=== PATIENT | female | born 1955 | race Asian ===

== ENCOUNTER 2016-10-17 20:49 | Emergency (ER) | payer OTHER ==
[2016-10-17] MEDS ORDERED: Sodium Chloride 0.9% 1,000 ML IV STA (22:17)
[2016-10-17] MEDS ORDERED: Ondansetron 4 MG/2 ML SDV IVPUSH ONE (22:21)
[2016-10-17] MEDS ORDERED: HYDROmorphone 0.5 MG/0.5 ML Syringe IVPUSH ONE (22:21)
--- NOTE | 2016-10-17 22:23 | EDM.PDOC ---
ED HPI GENERAL MEDICAL PROBLEM - General Chief Complaint: Gastrointestinal Problem Stated Complaint: LOWER ABD PAIN Time Seen by Provider: 10/17/16 22:12 Source of Information: Reports: Patient, RN Notes Reviewed History Limitations: Reports: No Limitations - History of Present Illness INITIAL COMMENTS - FREE TEXT/NARRATIVE: 61-year-old female presents emergency department day complaint of abdominal pain predominately in the right lower quadrant she states it started yesterday but has progressively gotten worse she's developed some nausea and vomiting, states she still passing gas no difficulty with urination no shortness of breath or chest pains Right Lower Abdomen Pain Score (Numeric/FACES): 8 - Related Data Allergies Allergy/AdvReac Type Severity Reaction Status Date / Time propoxyphene napsylate Allergy Nausea Verified 10/17/16 22:05 [From Sukhjindert-N 100] fosamax Allergy Other Uncoded 10/17/16 22:05 Home Meds: Home Meds Calc/D3/Mag/Zn/Bag Machine Operator/Homer/Victor [Calcium 600 MG Plus Vit D] 1 tab PO DAILY [History] Levothyroxine Sodium [Synthroid] 75 mcg PO ASDIRECTED 01/19/16 [History] Levothyroxine [Synthroid] 50 mcg PO ASDIRECTED 01/19/16 [History] Past Medical History HEENT History: Reports: Sinusitis Respiratory History: Reports: Other (See Below) Other Respiratory History: had bronchitis a couple weeks ago Gastrointestinal History: Reports: Chronic Constipation, Colon Polyp Musculoskeletal History: Reports: Other (See Below) Other Musculoskeletal History: bursitis to right shoulder Endocrine/Metabolic History: Reports: Hypothyroidism Other Endocrine/Metabolic History: partial thyroidectomy in 2005 Oncologic (Cancer) History: Reports: Thyroid - Infectious Disease History Infectious Disease History: Reports: Chicken Pox - Past Surgical History HEENT Surgical History: Reports: None GI Surgical History: Reports: Colonoscopy, Polypectomy Oncologic Surgical History: Reports: None Social & Family History - Family History Family Medical History: Noncontributory - Tobacco Use Smoking Status *Q: Never Smoker Second Hand Smoke Exposure: Yes - Caffeine Use Caffeine Use: Reports: None - Alcohol Use Days Per Week of Alcohol Use: 0 - Recreational Drug Use Recreational Drug Use: No ED ROS GENERAL - Review of Systems Review Of Systems: See Below Constitutional: Denies: Fever, Chills HEENT: Reports: No Symptoms Respiratory: Reports: No Symptoms Cardiovascular: Reports: No Symptoms GI/Abdominal: Reports: Abdominal Pain, Flatus, Nausea, Vomiting. Denies: Constipation, Diarrhea : Reports: No Symptoms Musculoskeletal: Reports: No Symptoms Skin: Reports: No Symptoms ED EXAM, GI/ABD - Physical Exam Exam: See Below Text/Narrative:: General: Female, not in any distress, alert and oriented x3 HEENT: head is atraumatic normocephalic, eyes pupils equal round reactive to light, sclera clear no conjunctivitis appreciated. Ears tympanic membranes clear and bedolla landmarks and light reflex are present bilaterally canals are clear. Nose no septal deviation, nares are clear, no blood present. Mouth mucosa is moist and pink no erythema or exudate noted in soft palate, tongue is midline uvula is midline, dentition is intact. Neck: Supple no thyromegaly no tracheal deviation. Nodes: Cervical nodes subclavicular nodes nontender no palpable lymphadenopathy noted. Lungs: clear to auscultation bilaterally with symmetrical respirations, no adventitious noise appreciated. CV: Regular rate and rhythm S1 and S2 appreciated no murmurs rubs or gallops noted. Abdomen: Soft, tender to palpation right lower quadrant, no palpable masses or organomegaly appreciated, no distention no guarding bowel sounds are present, psoas sign, obturator sign, heeltap sign all negative. Neuro: Cranial nerves II through XII grossly intact Skin: Warm and dry, intact Extremities: No lower extremity edema appreciated, pedal pulse is +2. Course - Vital Signs Last Recorded V/S: Last Vital Signs Temp 97.5 F 10/17/16 21:57 Pulse 78 10/17/16 21:57 Resp 14 10/17/16 21:57 BP 173/84 H 10/17/16 21:57 Pulse Ox 100 10/17/16 21:57 - Orders/Labs/Meds Orders: Active Orders 24 hr Category Date Time Status Peripheral IV Care [RC] . DIRECTED Care 10/17/16 22:20 Active Abdomen Pelvis w Cont [CT] Urgent Exams 10/17/16 22:17 Taken Iopamidol [Isovue-300 (61%)] Med 10/17/16 22:45 Active 74 ml IV . DIRECTED Piperacillin/Tazobactam [Zosyn] 3.375 gm Med 10/17/16 23:39 Ordered Sodium Chloride 0.9% [Normal Saline] 50 ml IV NOW Sodium Chloride 0.9% [Normal Saline] 1,000 ml Med 10/17/16 22:17 Active IV .BOLUS Sodium Chloride 0.9% [Normal Saline] 80 ml Med 10/17/16 22:45 Active IV ASDIRECTED Sodium Chloride 0.9% [Saline Flush] Med 10/17/16 22:17 Active 10 ml FLUSH ASDIRECTED PRN Peripheral IV Insertion Adult [OM.PC] Urgent Oth 10/17/16 22:17 Ordered Medication Orders Sodium Chloride (Normal Saline) 1,000 mls @ 500 mls/hr IV .BOLUS STA Stop: 10/18/16 00:16 Last Admin: 10/17/16 22:59 Dose: 500 mls/hr Sodium Chloride (Normal Saline) 80 mls @ 3 mls/sec IV ASDIRECTED FRANC Last Admin: 10/17/16 22:55 Dose: 3 mls/sec Piperacillin Sod/Tazobactam (Sod 3.375 gm/ Sodium Chloride) 50 mls @ 100 mls/ hr IV NOW STA Stop: 10/18/16 00:08 Iopamidol (Isovue-300 (61%)) 74 ml IV . DIRECTED [facility] Last Admin: 10/17/16 22:55 Dose: 74 ml Sodium Chloride (Saline Flush) 10 ml FLUSH ASDIRECTED PRN PRN Reason: Keep Vein Open Last Admin: 10/17/16 23:00 Dose: 10 ml Admin: 10/17/16 22:53 Dose: 10 ml Labs: Laboratory Tests 10/17/16 10/17/16 10/17/16 Range/Units 22:10 22:17 22:17 WBC 15.5 H (4.5-11.0) K/uL RBC 4.27 (3.30-5.50) M/uL Hgb 13.6 (12.0-15.0) g/dL Hct 39.9 (36.0-48.0) % MCV 93 (80-98) fL MCH 32 H (27-31) pg MCHC 34 (32-36) % Plt Count 205 (150-400) K/uL Neut % (Auto) 91 H (36-66) % Lymph % (Auto) 5 L (24-44) % [place] % (Auto) 5 (2-6) % Eos % (Auto) 0 L (2-4) % Baso % (Auto) 0 (0-1) % Sodium 133 L (140-148) mmol/L Potassium 3.2 L (3.6-5.2) mmol/L Chloride 95 L (100-108) mmol/L Carbon Dioxide 29 (21-32) mmol/L Anion Gap 12.2 (5.0-14.0) mmol/L BUN 12 (7-18) mg/dL Creatinine 0.7 (0.6-1.0) mg/dL Est Cr Clr Drug Dosing 60.62 mL/min Estimated GFR (MDRD) > 60 (>60) Glucose 136 H (74-106) mg/dL Lactic Acid (0.4-2.0) mmol/L Calcium 8.9 (8.5-10.1) mg/dL Total Bilirubin 0.8 (0.2-1.0) mg/dL AST 26 (15-37) U/L ALT 18 (12-78) U/L Alkaline Phosphatase 78 (46-116) U/L Total Protein 7.9 (6.4-8.2) g/dL Albumin 3.8 (3.4-5.0) g/dL Globulin 4.1 H (2.3-3.5) g/dL Albumin/Globulin Ratio 0.9 L (1.2-2.2) Lipase 116 (73-393) U/L Urine Color Yellow Urine Appearance Turbid Urine pH 8.0 (4.5-8.0) Ur Specific [place] 1.015 (1.008-1.030) Urine Protein Negative (NEGATIVE) mg/dL Urine Glucose (UA) 50 H (NEGATIVE) mg/dL Urine Ketones 15 H (NEGATIVE) mg/dL Urine Occult Blood Negative (NEGATIVE) Urine Nitrite Negative (NEGATIVE) Urine Bilirubin Negative (NEGATIVE) Urine Urobilinogen Normal (NORMAL) mg/dL Ur Leukocyte Esterase Negative (NEGATIVE) Urine RBC 0-5 (0-5) Urine WBC 0-5 (0-5) Ur Epithelial Cells Rare Amorphous Sediment Many Urine Bacteria Many Urine Mucus Not seen 10/17/16 Range/Units 22:17 WBC (4.5-11.0) K/uL RBC (3.30-5.50) M/uL Hgb (12.0-15.0) g/dL Hct (36.0-48.0) % MCV (80-98) fL MCH (27-31) pg MCHC (32-36) % Plt Count (150-400) K/uL Neut % (Auto) (36-66) % Lymph % (Auto) (24-44) % [place] % (Auto) (2-6) % Eos % (Auto) (2-4) % Baso % (Auto) (0-1) % Sodium (140-148) mmol/L Potassium (3.6-5.2) mmol/L Chloride (100-108) mmol/L Carbon Dioxide (21-32) mmol/L Anion Gap (5.0-14.0) mmol/L BUN (7-18) mg/dL Creatinine (0.6-1.0) mg/dL Est Cr Clr Drug Dosing mL/min Estimated GFR (MDRD) (>60) Glucose (74-106) mg/dL Lactic Acid 1.7 (0.4-2.0) mmol/L Calcium (8.5-10.1) mg/dL Total Bilirubin (0.2-1.0) mg/dL AST (15-37) U/L ALT (12-78) U/L Alkaline Phosphatase (46-116) U/L Total Protein (6.4-8.2) g/dL Albumin (3.4-5.0) g/dL Globulin (2.3-3.5) g/dL Albumin/Globulin Ratio (1.2-2.2) Lipase (73-393) U/L Urine Color Urine Appearance Urine pH (4.5-8.0) Ur Specific [place] (1.008-1.030) Urine Protein (NEGATIVE) mg/dL Urine Glucose (UA) (NEGATIVE) mg/dL Urine Ketones (NEGATIVE) mg/dL Urine Occult Blood (NEGATIVE) Urine Nitrite (NEGATIVE) Urine Bilirubin (NEGATIVE) Urine Urobilinogen (NORMAL) mg/dL Ur Leukocyte Esterase (NEGATIVE) Urine RBC (0-5) Urine WBC (0-5) Ur Epithelial Cells Amorphous Sediment Urine Bacteria Urine Mucus Meds: Medications Generic Name Dose Route Start Last Admin Trade Name Freq PRN Reason Stop Dose Admin Sodium Chloride 1,000 mls @ 500 mls/hr 10/17/16 22:17 10/17/16 22:59 Normal Saline IV 10/18/16 00:16 500 mls/hr .BOLUS STA Administration Sodium Chloride 80 mls @ 3 mls/sec 10/17/16 22:45 10/17/16 22:55 Normal Saline IV 3 mls/sec ASDIRECTED FRANC Administration Piperacillin Sod/Tazobactam 50 mls @ 100 mls/hr 10/17/16 23:39 Sod 3.375 gm/ Sodium Chloride IV 10/18/16 00:08 NOW STA Iopamidol 74 ml 10/17/16 22:45 10/17/16 22:55 Isovue-300 (61%) IV 74 ml . DIRECTED FRANC Administration Sodium Chloride 10 ml 10/17/16 22:17 10/17/16 23:00 Saline Flush FLUSH 10 ml ASDIRECTED PRN Administration Keep Vein Open Discontinued Medications Generic Name Dose Route Start Last Admin Trade Name Freq PRN Reason Stop Dose Admin Hydromorphone HCl 0.5 mg 10/17/16 22:21 10/17/16 23:04 Dilaudid IVPUSH 10/17/16 22:22 0.5 mg ONETIME ONE Administration Ondansetron HCl 4 mg 10/17/16 22:21 10/17/16 23:07 Zofran IVPUSH 10/17/16 22:22 4 mg ONETIME ONE Administration Departure - Departure Time of Disposition: 23:45 Disposition: DC/Tfer to Acute Hospital 02 Condition: Good Clinical Impression: Acute appendicitis Qualifiers: Acute appendicitis type: with localized peritonitis Qualified Code(s): K35.3 - Acute appendicitis with localized peritonitis - Discharge Information Forms: ED Department Discharge - My Orders Last 24 Hours: My Active Orders 10/17/16 22:17 Abdomen Pelvis w Cont [CT] Urgent Sodium Chloride 0.9% [Normal Saline] 1,000 ml IV .BOLUS Sodium Chloride 0.9% [Saline Flush] 10 ml FLUSH ASDIRECTED PRN Peripheral IV Insertion Adult [OM.PC] Urgent 10/17/16 22:20 Peripheral IV Care [RC] . DIRECTED 10/17/16 22:45 Iopamidol [Isovue-300 (61%)] 74 ml IV . DIRECTED Sodium Chloride 0.9% [Normal Saline] 80 ml IV ASDIRECTED 10/17/16 23:39 Piperacillin/Tazobactam [Zosyn] 3.375 gm Sodium Chloride 0.9% [Normal Saline] 50 ml IV NOW - Assessment/Plan Last 24 Hours: My Active Orders 10/17/16 22:17 Abdomen Pelvis w Cont [CT] Urgent Sodium Chloride 0.9% [Normal Saline] 1,000 ml IV .BOLUS Sodium Chloride 0.9% [Saline Flush] 10 ml FLUSH ASDIRECTED PRN Peripheral IV Insertion Adult [OM.PC] Urgent 10/17/16 22:20 Peripheral IV Care [RC] . DIRECTED 10/17/16 22:45 Iopamidol [Isovue-300 (61%)] 74 ml IV . DIRECTED Sodium Chloride 0.9% [Normal Saline] 80 ml IV ASDIRECTED 10/17/16 23:39 Piperacillin/Tazobactam [Zosyn] 3.375 gm Sodium Chloride 0.9% [Normal Saline] 50 ml IV NOW Plan: Assessment Acuity = acute Site and laterality = appendicitis complicated patient with known history of hypothyroidism Etiology = unclear etiology Manifestations = pain Location of injury = Home Lab values = WBC elevated at 15.5 consistent leukocytosis, sodium low at 133 consistent hyponatremia potassium low at 3.2 consistent hypokalemia urinalysis reveals 15 ketones consistent ketonuria and 50 glucose consistent glucose urea CT scan demonstrated acute appendicitis without perforation or rupture Plan Called discussed case with Dr. Feldman general surgery reclamation worker at [facility] he kindly accepted the patient in transfer Pers recognition start Zosyn 3.375 mg 1 she'll be transferred via EMS ground Patient was in agreement with the plan all questions were answered, This note was dictated using [employer] voice recognition software please call with any questions.
[2016-10-17] MEDS ORDERED: Iopamidol 612 MG/ML 100 ML Bottle IV SCH (22:45)
[2016-10-17] MEDS ORDERED: Sodium Chloride 0.9% 80 ML IV SCH (22:45)
[2016-10-17] MEDS: Sodium Chloride 0.9% 10 ML Syringe FLUSH PRN ×2 (22:53→23:00)
[2016-10-17] MEDS ORDERED: Piperacillin/Tazobactam 3.375 GM in Sodium Chloride 0.9% 50 ML IV STA (23:39)
[2016-10-17 23:55] VITALS: BP 124/84
== END 2016-10-18 00:23 ==
LOC: JP.ED 20:49
DX: K35.3 Acute appendicitis with localized peritonitis (principal); E89.0 Postprocedural hypothyroidism; Z98.890 Other specified postprocedural states; Z88.8 Allergy status to other drugs, medicaments and biological substances
CPT/HCPCS: 36415; 74177; 80053; 81001; 83605; 83690; 85025; 96361; 96374; 96375; 99285; J1170; J2405; J2543; J7030; J7040; J7050; Q9967

== ENCOUNTER 2020-11-24 15:33 | Emergency (ER) | payer MEDICARE, BC ==
--- NOTE | 2020-11-24 15:58 | EDM.PDOC ---
ED HPI GENERAL MEDICAL PROBLEM - General Chief Complaint: Gastrointestinal Problem Stated Complaint: MEDICAL VIA [facility] Time Seen by Provider: 11/24/20 15:54 Source of Information: Reports: Patient, EMS, Family History Limitations: Reports: No Limitations - History of Present Illness INITIAL COMMENTS - FREE TEXT/NARRATIVE: 65 year old female presenting by EMS with vomiting. The patient reports that she developed nausea and vomiting this morning. She reports vomiting twice, but sounds like she has been having dry heaving. She admits to recent constipation, but notes she had a small, hard stool around noon today. She denies associated fever, chills, cough, chest pain, SOB, abdominal pain, diarrhea, or urinary symptoms. She admits that two of her brothers in the past two weeks and it has been difficult dealing with that. She admits that she didn't sleep much last night. She does admit to some dizziness, but denies room spinning. She has had decreased appetite recently. She had thyroid surgery about 2 months ago and is taking Synthroid. - Related Data Allergies Allergy/AdvReac Type Severity Reaction Status Date / Time propoxyphene napsylate Allergy Nausea Verified 11/24/20 15:47 [From Darvocet-N 100] fosamax Allergy Other Uncoded 11/24/20 15:47 Home Meds: Home Meds Calc/D3/Mag/Zn/James/Homer/[place] [Calcium 600 MG Plus Vit D] 1 tab PO DAILY 03/23/13 [History] Levothyroxine Sodium [Synthroid] 75 mcg PO DAILY 01/19/16 [History] Cholecalciferol (Vitamin D3) [Vitamin D3] 1,000 unit PO DAILY 09/20/20 [History] Guaifenesin/Pseudoephedrne HCl [Mucinex D ER 600-60 mg Tablet] 1 each PO ASDIRECTED 09/20/20 [History] diazePAM [Valium.] 5 - 10 mg PO Q6H PRN 09/20/20 [History] Past Medical History HEENT History: Reports: Sinusitis Respiratory History: Reports: Other (See Below) Other Respiratory History: had bronchitis a couple weeks ago Gastrointestinal History: Reports: Chronic Constipation, Colon Polyp Musculoskeletal History: Reports: Other (See Below) Other Musculoskeletal History: bursitis to right shoulder Endocrine/Metabolic History: Reports: Hypothyroidism Other Endocrine/Metabolic History: partial thyroidectomy in 2006 Oncologic (Cancer) History: Reports: Thyroid - Infectious Disease History Infectious Disease History: Reports: Chicken Pox - Past Surgical History HEENT Surgical History: Reports: None Respiratory Surgical History: Reports: None GI Surgical History: Reports: Colonoscopy, Polypectomy Endocrine Surgical History: Reports: Thyroidectomy Other Endocrine Surgeries/Procedures: partial in 2006 for cancer Oncologic Surgical History: Reports: None Social & Family History - Family History Family Medical History: No Pertinent Family History - Caffeine Use Caffeine Use: Reports: None ED ROS GENERAL - Review of Systems Review Of Systems: Comprehensive ROS is negative, except as noted in HPI. ED EXAM, GI/ABD - Physical Exam Exam: See Below Exam Limited By: No Limitations General Appearance: Alert, No Apparent Distress Ears: Normal External Exam Nose: Normal Mucosa Throat/Mouth: Normal Inspection, Normal Voice Head: Atraumatic, Normocephalic Neck: Supple, Full Range of Motion Respiratory/Chest: No Respiratory Distress, Lungs Clear, Normal Breath Sounds, No Accessory Muscle Use Cardiovascular: Regular Rate, Rhythm GI/Abdominal Exam: Normal Bowel Sounds, Soft, Non-Tender, No Distention. No: Guarding, Rigid, Rebound Back Exam: Normal Inspection, Full Range of Motion Extremities: Normal Inspection, Normal Range of Motion, Non-Tender, No Pedal Edema Neurological: Alert, Oriented, CN II-XII Intact, Normal Cognition, Normal Gait, No Motor/Sensory Deficits Psychiatric: Normal Affect, Normal Mood Skin Exam: Warm, Dry, Normal Color #1 Interpretation EKG Date: 11/24/20 Time: 16:53 Rhythm: NSR Rate (Beats/Min): 72 P-Wave: Present QRS: Normal ST-T: Normal QT: Prolonged Comparison: NA - No Prior EKG EKG Interpretation Comments: flattened t-waves Course - Vital Signs Last Recorded V/S: Last Vital Signs Temp 97.6 F 11/24/20 15:56 Pulse 71 11/24/20 15:56 Resp 16 11/24/20 15:56 BP 178/67 H 11/24/20 15:56 Pulse Ox 100 11/24/20 15:56 - Orders/Labs/Meds Orders: Active Orders 24 hr Category Date Time Status EKG Documentation Completion [RC] ASDIRECTED Care 11/24/20 15:49 Active Sodium Chloride 0.9% [Normal Saline] 1,000 ml Med 11/24/20 16:00 Active IV ASDIRECTED EKG 12 Lead [EK] Stat Ther 11/24/20 15:49 Ordered Medication Orders Sodium Chloride (Normal Saline) 1,000 mls @ 500 mls/hr IV ASDIRECTED FRANC Last Admin: 11/24/20 16:01 Dose: 500 mls/hr Documented by: KATT Labs: Laboratory Tests 11/24/20 11/24/20 11/24/20 Range/Units 16:05 16:05 17:09 WBC 10.3 (4.5-11.0) K/uL RBC 4.43 (3.30-5.50) M/uL Hgb 14.0 (12.0-15.0) g/dL Hct 42.3 (36.0-48.0) % MCV 96 (80-98) fL MCH 32 H (27-31) pg MCHC 33 (32-36) % Plt Count 243 (150-400) K/uL Neut % (Auto) 85.6 H (36-66) % Lymph % (Auto) 10.3 L (24-44) % [place] % (Auto) 3.8 (2-6) % Eos % (Auto) 0.1 L (2-4) % Baso % (Auto) 0.2 (0-1) % Sodium 144 (140-148) mmol/L Potassium 4.3 (3.6-5.2) mmol/L Chloride 102 (100-108) mmol/L Carbon Dioxide 31 (21-32) mmol/L Anion Gap 10.8 (5.0-14.0) mmol/L BUN 13 (7-18) mg/dL Creatinine 0.7 (0.6-1.0) mg/dL Est Cr Clr Drug Dosing 63.11 mL/min Estimated GFR (MDRD) > 60 (>60) Glucose 136 H (74-106) mg/dL Calcium 8.8 (8.5-10.1) mg/dL Total Bilirubin 0.4 (0.2-1.0) mg/dL AST 21 (15-37) U/L ALT 19 (12-78) U/L Alkaline Phosphatase 72 (46-116) U/L Troponin I < 0.017 (0.000-0.056) ng/mL Total Protein 7.5 (6.4-8.2) g/dL Albumin 3.8 (3.4-5.0) g/dL Globulin 3.7 H (2.3-3.5) g/dL Albumin/Globulin Ratio 1.0 L (1.2-2.2) Lipase 92 (73-393) U/L Urine Color Yellow (YELLOW) Urine Appearance Clear (CLEAR) Urine pH 7.0 (5.0-8.0) Ur Specific [place] 1.015 (1.008-1.030) Urine Protein Negative (NEGATIVE) mg/dL Urine Glucose (UA) Negative (NEGATIVE) mg/dL Urine Ketones Trace H (NEGATIVE) mg/dL Urine Occult Blood Negative (NEGATIVE) Urine Nitrite Negative (NEGATIVE) Urine Bilirubin Negative (NEGATIVE) Urine Urobilinogen 0.2 (0.2-1.0) EU/dL Ur Leukocyte Esterase Negative (NEGATIVE) Urine RBC 0-5 (0-5) Urine WBC 0-5 (0-5) Ur Epithelial Cells Occasional Amorphous Sediment Occasional Urine Bacteria Occasional Urine Mucus Occasional Meds: Medications Generic Name Dose Route Start Last Admin Trade Name Freq PRN Reason Stop Dose Admin Sodium Chloride 1,000 mls @ 500 mls/hr 11/24/20 16:00 11/24/20 16:01 Normal Saline IV 500 mls/hr ASDIRECTED FRANC Administration Departure - Departure Time of Disposition: 17:47 Disposition: Home, Self-Care 01 Condition: Good Clinical Impression: Vomiting, Lightheaded - Discharge Information Instructions: Nausea and Vomiting, Adult, [id number] Referrals: PCP,None [Primary Care Provider] - Forms: ED Department Discharge Additional Instructions: Your labs and urine look normal today. Your blood pressure is high and you should follow up in the clinic to have it rechecked. Use the zofran as needed for nausea/vomiting. Return to the emergency department for any new or worsening symptoms, including persistent vomiting, fever, pain, or other concerning symptoms. Sepsis Event Note (ED) - Evaluation Sepsis Screening Result: No Definite Risk - Focused Exam Vital Signs: Vital Signs Temp Pulse Resp BP Pulse Ox 11/24/20 15:56 97.6 F 71 16 178/67 H 100 11/24/20 15:42 97.6 F 71 16 178/67 H 100 - Problem List Review Problem List Initiated/Reviewed/Updated: Yes - My Orders Last 24 Hours: My Active Orders 11/24/20 15:49 EKG Documentation Completion [RC] ASDIRECTED EKG 12 Lead [EK] Stat 11/24/20 16:00 Sodium Chloride 0.9% [Normal Saline] 1,000 ml IV ASDIRECTED - Assessment/Plan Last 24 Hours: My Active Orders 11/24/20 15:49 EKG Documentation Completion [RC] ASDIRECTED EKG 12 Lead [EK] Stat 11/24/20 16:00 Sodium Chloride 0.9% [Normal Saline] 1,000 ml IV ASDIRECTED Assessment:: 65 year old female presenting with nausea and vomiting. She is afebrile and well appearing here. Differential diagnosis includes gastroenteritis, gastritis, PUD, cholecystitis, atypical ACS, among others. She has a benign abdominal exam and has no complaints of pain here. EKG did not reveal any acute ischemic changes. Troponin is negative. I have low suspicion for ACS given atypical symptoms and no EKG changes and normal Troponin. Her labs are unremarkable, including a normal lipase and LFTs. Her urinalysis does not reveal any evidence of infection. She was treated with zofran and IVF with improvement of her symptoms. She is tolerating PO here and continues to have a benign abdominal exam on reassessment. The exact etiology of her symptoms is not entirely clear, though I think it could be partially related to the grief she is experiencing from losing her 2 brothers recently and the lack of sleep. With her reassuring exam and work-up today, I think she is safe for discharge home with close follow up with her primary care provider. she is hypertensive here, but no evidence of end organ damage and can be followed up outpatient to recheck BP. No indication to start BP medications at this time. She was instructed to return to the ED for any new or worsening symptoms, including persistent vomiting, fever, abdominal pain, headache, or other concerning symptoms.
[2020-11-24] MEDS ORDERED: Sodium Chloride 0.9% 1,000 ML IV SCH (16:00)
[2020-11-24 18:03] VITALS: BP 175/80; PULSE 75
== END 2020-11-24 18:09 | disposition home or self-care (01) ==
LOC: JP.ED 15:33
DX: R11.2 Nausea with vomiting, unspecified (principal); R42 Dizziness and giddiness; E03.9 Hypothyroidism, unspecified; Z79.899 Other long term (current) drug therapy; Z88.8 Allergy status to other drugs, medicaments and biological substances
CPT/HCPCS: 36415; 80053; 81001; 83690; 84484; 85025; 93005; 99284; J7030

== ENCOUNTER 2021-04-16 06:45 | Day surgery (SDC) | payer MEDICARE, BC ==
[2021-04-16] MEDS ORDERED: Propofol 200 MG/20 ML SDV ONE (07:32)
[2021-04-16] MEDS ORDERED: Midazolam 1 MG/ML 2 ML SDV ONE (07:32)
[2021-04-16] MEDS ORDERED: fentaNYL 100 MCG/2 ML SDV ONE (07:32)
[2021-04-16] MEDS ORDERED: Sodium Chloride 0.9% 1,000 ML IV SCH (08:00)
[2021-04-16 10:27] VITALS: BP 138/77; PULSE 67
--- NOTE | 2021-04-17 07:36 | OR ---
DATE OF PROCEDURE: 04/16/2021 SURGEON: Reynaldo Marquez MD PROCEDURE: Colonoscopy. FINDINGS: Sigmoid colon polyp, approximately 3 mm, completely removed using cold biopsy forceps. COMPLICATIONS: None. INFORMATION SYSTEMS SECURITY OFFICER: None. ANESTHESIA: MAC. PREOPERATIVE DIAGNOSIS: Family history of colorectal cancer. POSTOPERATIVE DIAGNOSIS: Family history of colorectal cancer. RISKS: Risks, benefits, alternatives, and limitations including, but not limited to infection, bleeding, perforation, false positives and false negatives were explained to the patient and they wished to proceed. PROCEDURE IN DETAIL: The patient was placed in the left lateral decubitus position. Digital rectal exam was performed without abnormality. Scope was introduced and advanced atraumatically to the ileocecal valve. A photo was taken. The scope was brought back to the ascending, transverse, descending colon, and retroflexed. No evidence of old or new blood. No mass. No colitis. No diverticulosis. No abnormalities on retroflexion. The aforementioned polyp was identified and completely removed. Greater than 8 minutes was spent removing the scope. Prep was acceptable, approximately 90% of luminal surface could be seen. The patient tolerated procedure well. Reynaldo Marquez MD /[id number]
== END 2021-04-16 10:40 | disposition home or self-care (01) ==
LOC: JP.SDS 06:45
PROVIDERS: ATTEND Surgery
DX: Z12.11 Encounter for screening for malignant neoplasm of colon (principal); D12.4 Benign neoplasm of descending colon; Z80.0 Family history of malignant neoplasm of digestive organs
CPT/HCPCS: 45380; J2250; J2704; J3010; J7030; 88305

== ENCOUNTER 2024-12-28 20:42 | Emergency (ER) | payer MEDICARE, BC ==
[2024-12-28 21:35] LABS: BASOPHILS ABSOLUTE AUTO 0.03 K/uL (0.00-0.10); BASOPHILS PERCENT AUTO 0.5 % (0.1-1.3); EOSINOPHILS ABSOLUTE AUTO 0.06 K/uL (0.00-0.40); EOSINOPHILS PERCENT AUTO 1.0 % (0.0-5.4); IMMATURE GRAN PERCENT AUTO 0.3 % (0.0-0.7); LYMPHOCYTES ABSOLUTE AUTO 1.55 K/uL (0.8-3.3); LYMPHOCYTES PERCENT AUTO 26.9 % (11.4-47.7); MONOCYTES ABSOLUTE AUTO 0.41 K/uL (0.20-0.90); MONOCYTES PERCENT AUTO 7.1 % (3.3-12.6); NEUTROPHILS ABSOLUTE AUTO 3.70 K/uL (1.0-7.6); NEUTROPHILS PERCENT AUTO 64.2 % (40.0-78.1); PLATELET COUNT,PLT 235 K/uL (130-375); RED BLOOD CELL COUNT 4.53 M/uL (3.77-5.24); WHITE BLOOD CELL COUNT,WBC 5.8 K/uL (3.2-11.0)
[2024-12-28 21:36] LABS: IMMATURE GRAN ABSOLUTE AUTO 0.02 K/uL (0.00-0.23)
[2024-12-28 22:04] LABS: A/G RATIO 1.0 (1.2-2.2); ALANINE AMINOTRANSFERASE,ALT 37 U/L (12-78); ASPARTATE AMNIOTRANSFERASE,AST 32 U/L (15-37); BILIRUBIN TOTAL 0.3 mg/dL (0.2-1.0); BLOOD UREA NITROGEN,BUN 13 mg/dL (7-18); CARBON DIOXIDE,CO2 29 mmol/L (21-32); CHLORIDE,CL 105 mmol/L (100-108); CREATININE 0.5 mg/dL (0.6-1.0); ESTIMATED GFR 101 mL/min (>60); GLUCOSE RANDOM 120 mg/dL (74-106); POTASSIUM,K 3.4 mmol/L (3.6-5.2); PROTEIN TOTAL,TP 7.9 g/dL (6.4-8.2); SODIUM,NA 142 mmol/L (140-148); TROPONIN I HIGH SENSITIVITY 10.6 pg/mL (<=60.3)
[2024-12-28 22:06] LABS: TSH ULTRASENSITIVE < 0.007 uIU/mL (0.358-3.740)
[2024-12-28 22:50] VITALS: PULSE 77
[2024-12-29 00:03] VITALS: BP 127/61
[2024-12-29 00:14] LABS: APPEARANCE,URINE CLEAR (CLEAR); GLUCOSE,URINE NEGATIVE (NEGATIVE); OCCULT BLOOD,URINE NEGATIVE (NEGATIVE)
[2024-12-29 00:15] LABS: SQUAMOUS EPITHELIAL CELLS,UR NOT SEEN /HPF; UROTHELIAL CELLS,URINE NOT SEEN /HPF
== END 2024-12-29 00:25 | disposition home or self-care (01) ==
LOC: JP.ED 20:42
DX: I16.0 Hypertensive urgency (principal); E03.9 Hypothyroidism, unspecified; Z79.899 Other long term (current) drug therapy; Z79.890 Hormone replacement therapy; Z88.8 Allergy status to other drugs, medicaments and biological substances; Z90.49 Acquired absence of other specified parts of digestive tract
CPT/HCPCS: 36415; 80053; 81001; 84443; 84484; 85025; 99283; A9270